=== PATIENT | female | born 1985 | race Caucasian/White ===

== ENCOUNTER 2017-12-12 17:19 | Emergency (ER) | payer MEDICAID ==
[~2017-12-12] VITALS: Ht 160 cm; Wt 70.3 kg
[2017-12-12 17:24] VITALS: Ht 160 cm; Wt 70.3 kg
[2017-12-12 18:41] LABS: BASOPHIL % 1.1 % (0-2); PLATELET COUNT 266 x10^3mcL (130-400); RED CELL DISTRIBUTION WIDTH 16.7 % (11.5-14.5)
[2017-12-12 19:57] LABS: microscopic required? YES; urine erythrocyte 3+ (NEGATIVE)
[2017-12-12 20:51] VITALS: BP 134/78
== END 2017-12-12 20:51 | disposition home or self-care (01) ==
LOC: ED 17:19
PROVIDERS: Emergency Medicine
DX: O36.4XX0 Maternal care for intrauterine death, not applicable or unspecified (principal); O23.41 Unspecified infection of urinary tract in pregnancy, first trimester; Z3A.09 9 weeks gestation of pregnancy
CPT/HCPCS: 36415

== ENCOUNTER 2017-12-15 18:13 | Emergency (ER) | payer MEDICAID ==
[~2017-12-15] VITALS: Ht 160 cm; Wt 71.2 kg
[2017-12-15 18:34] VITALS: Ht 160 cm; Wt 71.2 kg
[2017-12-15 21:08] VITALS: BP 126/74
== END 2017-12-15 21:08 | disposition home or self-care (01) ==
LOC: ED 18:13
DX: O02.1 Missed abortion (principal); Z90.49 Acquired absence of other specified parts of digestive tract
CPT/HCPCS: J1885